=== PATIENT | female | born 1975 | race Caucasian/White ===

== ENCOUNTER 2023-01-20 17:03 | Emergency (ER) | payer OTHER ==
[~2023-01-20] VITALS: Ht 157.5 cm; Wt 72.6 kg
[2023-01-20 18:14] VITALS: BP_SYST 145
[2023-01-20] MEDS ORDERED: IBUPROFEN 800 MG TABLET PO ONE (19:00)
[2023-01-20 19:53] VITALS: BP_SYST 132
== END 2023-01-20 19:54 | disposition home or self-care (01) ==
LOC: SED 17:03
DX: S61.431A Puncture wound without foreign body of right hand, initial encounter (principal); Z79.899 Other long term (current) drug therapy; W46.0XXA Contact with hypodermic needle, initial encounter; Y93.89 Activity, other specified; Y92.89 Other specified places as the place of occurrence of the external cause; Y99.8 Other external cause status
CPT/HCPCS: 36415; 99283